=== PATIENT | male | born 1975 | race African-American/Black ===

== ENCOUNTER 2022-06-29 17:04 | Emergency (ER) | payer SELFPAY ==
[2022-06-29 17:23] VITALS: BP 116/87; PULSE 78; RESP 18; TEMP 36.4; O2SAT 99
--- NOTE | 2022-06-29 17:40 | ED.GENADULT ---
HPI - General Adult General Chief complaint: Skin/Abscess/Foreign Body Stated complaint: rash History of Present Illness HPI narrative: Patient is a 46-year-old -[place] male who presents to the [facility] via POV for evaluation of a generalized rash that has been present for 2 weeks He reports the rash to be erythematous, and pruritic. Denies taking OTC meds for symptoms. Scratching alleviates itch. Nothing worsens symptoms. Related Data Allergies Allergy/AdvReac Type Severity Reaction Status Date / Time No Known Allergies Allergy Verified 06/29/22 17:27 Review of Systems Review of Systems: denies recent/new changes in soaps, perfumes, lotions, detergents, and shampoos. Denies working with chemicals. Denies new or changes in medications/foods. Pertinent negatives fever, chills, sweats, change in appetite, malaise, poor p.o. intake, recent weight loss, change in appetite, myalgias, lymphadenopathy, LOC, dizziness, burning sensation, petechiae, blistering, swelling, streaking, warmth, lesions, easy bruising, lip/tongue/throat swelling, facial swelling, abdominal pain, nausea, vomiting, numbness, tingling, loss of sensation, cough, wheezing, chest pain, and heart palpitations/murmurs. PMFSH Comments I have reviewed and agree with the patient's past medical, surgical, social, and family hx as documented by the RN. There is no relevant family history pertinent to the presenting complaint. Exam Narrative: GENERAL: Well-appearing, well-nourished, and in no acute distress. HEAD: Normocephalic, atraumatic. No facial swelling appreciated. EYES: PERRLA and EOMI. No evidence of erythema, swelling, or drainage. ENT: Nares clear, no rhinorrhea or epistaxis.Mucous membranes moist and pink. Uvula is midline without erythema and swelling. No evidence of obstruction, petechial rash, cobblestoning, lesions, ulcers, erythema, swelling, exudates, peritonsillar abscess, tenting, or drooling. Breath odor and voice normal. NECK: Supple. No Lymphadenopathy or nuchal rigidity appreciated. CHEST: Bilateral lung weeks are clear to auscultation. No respiratory distress. No evidence of cough or pleuritic cp upon examination. HEART: Regular rate and rhythm. No murmur, gallop, or rub heard. EXTREMITIES: Normal range of motion. No edema. SKIN: Warm, dry. Mild generalized rash that is raised and erythematous consistent with contact dermatitis. Rash is sparsely dispersed. No facial involvement. No evidence of cellulitis, abscess, streaking, induration, abrasions/lacerations, petechiae, hematoma, contusion, drainage, or bleeding. NEURO: No focal deficits. Alert and oriented x3. SPECIAL OBSERVATIONS: Smiling. Laughing. Course Course Level of Care: Express Care Visit Vital Signs Vital signs: Vital Signs Temperature 97.6 F 06/29/22 17:23 Pulse Rate 78 06/29/22 17:23 Respiratory Rate 18 06/29/22 17:23 Blood Pressure 116/87 06/29/22 17:23 Pulse Oximetry 99 06/29/22 17:23 Oxygen Delivery Room Air 06/29/22 17:23 Temperature 97.6 F 06/29/22 17:23 Pulse Rate 78 06/29/22 17:23 Respiratory Rate 18 06/29/22 17:23 Blood Pressure 116/87 06/29/22 17:23 Pulse Oximetry 99 06/29/22 17:23 Oxygen Delivery Room Air 06/29/22 17:23 Medical Decision Making Differential Diagnosis Differential Diagnosis: Contact/allergic dermatitis, atopic dermatitis, psoriasis, cellulitis, tinea infection, parasite infection, shingles Vital Signs Vital Signs: Vital Signs Temperature 97.6 F 06/29/22 17:23 Pulse Rate 78 06/29/22 17:23 Respiratory Rate 18 06/29/22 17:23 Blood Pressure 116/87 06/29/22 17:23 Pulse Oximetry 99 06/29/22 17:23 Oxygen Delivery Room Air 06/29/22 17:23 Temperature 97.6 F 06/29/22 17:23 Pulse Rate 78 06/29/22 17:23 Respiratory Rate 18 06/29/22 17:23 Blood Pressure 116/87 06/29/22 17:23 Pulse Oximetry 99 06/29/22 17:23 Oxygen Delivery Room Air 06/29/22 17:23
== END 2022-06-29 17:40 | disposition home or self-care (01) ==
PROVIDERS: Emergency Provider Nurse Practitioner Family
DX: L25.9 Unspecified contact dermatitis, unspecified cause (principal)
CPT/HCPCS: 99203; G0463

== ENCOUNTER 2022-07-20 18:17 | Emergency (ER) | payer OTHER, SELFPAY ==
--- NOTE | ~2022-07-20 | XR_ITS ---
[id number] DATE: 07/20/2022 18:36 INDICATION: Left lower anterior rib pain after injury leaning over mental TECHNIQUE: PA chest. 3 views of the left ribs. COMPARISON: None FINDINGS: No left rib fracture is detected. Normal heart size. No hilar or mediastinal enlargement. No pulmonary infiltrate or consolidation, ple ural effusion or pulmonary vascular congestion or pneumothorax. IMPRESSION: No left rib fracture is noted No active cardiopulmonary disease Reviewed, dictated and finalized at [facility]. Reviewed, dictated and finalized at [facility].
--- NOTE | 2022-07-20 18:19 | ED.ABDPAIN ---
HPI - Abdominal Pain General Chief Complaint: Extremity Problem,Nontraumatic Stated Complaint: Lt Side Pain Time Seen by Provider: 07/20/22 18:19 Related Data Home Medications Medication Instructions Recorded Confirmed No Home Medications 07/20/22 07/20/22 Allergies Allergy/AdvReac Type Severity Reaction Status Date / Time No Known Allergies Allergy Verified 07/20/22 18:18 Discharge Plan Discharge Prescriptions: No Action No Home Medications Follow-up/Referrals: UNKNOWN,DOCTOR [Non-Staff] -
[2022-07-20 18:23] VITALS: BP 125/74; PULSE 81; RESP 16; TEMP 36.7; O2SAT 99
--- NOTE | 2022-07-20 18:27 | ED.CHESTPAIN ---
HPI - Chest Pain General Chief Complaint: Extremity Problem,Nontraumatic Stated Complaint: Lt Side Pain Time Seen by Provider: 07/20/22 18:19 Source: patient Mode of arrival: ambulatory Limitations: no limitations History of Present Illness HPI narrative: Mr. De La Fuente is a 46-year-old male patient presenting to the clinic today with complaints of left-sided anterior rib pain. He reports that he was leaning over [place] to picker/puller a branch approximately 2 weeks ago and felt a pop and a snap in his left ribs. He is complaining of pain to the left ribs still. States that it hurts to cough, sneeze, or laugh. He is concerned about a rib fracture Related Data Allergies Allergy/AdvReac Type Severity Reaction Status Date / Time No Known Allergies Allergy Verified 07/20/22 18:18 Review of Systems Review of Systems: Pertinent positives per HPI. Patient denies any fever, chills, rash, headache, visual changes, dizziness, cough, runny nose, sore throat, shortness of breath, chest pain, palpitations, nausea, vomiting, diarrhea, constipation, abdominal pain, or any urinary issues. PMFSH Comments At the time of my signature, I reviewed and agree with the nursing past medical, surgical, social, and family history. There is no relevant family history pertinent to the patient complaint. Exam Narrative: General: Well-developed, well nourished, in no apparent distress Head: Normocephalic, atraumatic. Chest: Even rise and fall with respirations, no bruising or swelling visualized, tender to palpation over the left anterior lower left ribs Cardio: Regular rate and rhythm, s1 and s2 normal, no murmur appreciated. Resp: Clear to auscultation bilaterally, no rhonchi, rales, wheezing or rubs. Extremities: No deformity, no edema, no cyanosis, capillary refill less than 2 seconds, peripheral pulses palpable and strong. Integumentary: Ackerman, warm, and dry, intact without lesion, no rashes. Course Course Emergency Course: Portions of this record may have been created with voice recognition software. Level of Care: Express Care Visit Vital Signs Vital signs: Vital signs reviewed MDM - Chest Pain MDM Narrative Medical decision making narrative: At the time of visit patient is resting comfortably on the exam table. X-ray was performed of the left ribs/chest. X-rays negative for any fracture or any cardiopulmonary disease I suspect the patient has a muscle strain to the left chest wall. Supportive measures were discussed with the patient he voiced understanding of discharge instructions and agrees to treatment plan. Differential Diagnosis Differential diagnosis: Likely fracture of rib and other (Muscle strain, rib contusion) Imaging Data Radiologist's impression: [address] [address] XRay Report Signed Patient: Félix De La Fuente : 1975 MR#: [id number] Age/Sex: 46 / M Acct:[id number] Loc: [facility]? ? ADM Date: 07/20/22Attending Dr: Ordering Physician: Baljit Nickerson APRN Date of Service: 07/20/22 Procedure(s): XR ribs LT w PA CXR Accession Number(s): [id number] cc: Baljit Nickerson APRN; BREWING TECHNICIAN PHYSICIAN~ [id number] DATE: 07/20/2022 18:36 INDICATION: Left lower anterior rib pain after injury leaning over mental? TECHNIQUE: PA chest. 3 views of the left ribs.? COMPARISON: None? FINDINGS: No left rib fracture is detected. Normal heart size. No hilar or mediastinal enlargement. No pulmonary infiltrate or consolidation, pleural effusion or pulmonary vascular congestion or pneumothorax.? IMPRESSION: No left rib fracture is noted No active cardiopulmonary disease? Reviewed, dictated and finalized at [facility]. Reviewed, dictated and finalized at [facility]. Dictated By:? Juanjose Feldman MD?
== END 2022-07-20 18:56 | disposition home or self-care (01) ==
PROVIDERS: Emergency Provider Nurse Practitioner Family
DX: S29.011A Strain of muscle and tendon of front wall of thorax, initial encounter (principal); X50.9XXA Other and unspecified overexertion or strenuous movements or postures, initial encounter
CPT/HCPCS: 71101; 99213; G0463

== ENCOUNTER 2024-05-10 08:05 | Emergency (ER) | payer BC, SELFPAY ==
--- NOTE | ~2024-05-10 | XR_ITS ---
XR hip LT 2V w AP pelvis Ordering provider: Salvador Fajardo MD History: . pain, Pt states he dislocated Lt hip x yrs ago. . Comparison: None. FINDINGS: BONES: No definite acute fracture or dislocation. HIP JOINT SPACES: Severe left hip osteoarthritis. SACROILIAC JOINT SPACES/LUMBAR SPINE: The sacroiliac joint spaces are normal. Mild degenerative higgins es of the visualized lower lumbar spine. PUBIC SYMPHYSIS: Normal. SOFT TISSUES: Normal. IMPRESSION: No definite acute osseous abnormality pelvis and left hip. Severe left hip osteoarthritic changes. Reviewed, dictated and finalized at location [facility].
[2024-05-10 08:06] VITALS: BP 145/84; PULSE 98; RESP 17; TEMP 36.6; O2SAT 100
[2024-05-10] MEDS: HYDROcodone/acetaminophen (*CRX) 5-325 MG TABLET 1 TAB PO (08:39)
--- NOTE | 2024-05-10 09:30 | ED.LOWEXIN ---
HPI - Extremity Injury (Lower) General Chief Complaint: Extremity Injury, Lower Stated Complaint: HIP Time Seen by Provider: 05/10/24 08:13 History of Present Illness HPI Narrative: patient is a 48-year-old male who presents ER with left hip pain. Reports he dislocated his hip in 80s and was told he would likely develop arthritis at some point. He has been having increased pain over last couple of years. He reports with certain positions he feels his leg/ hip popping like it is moving in the joint. He has trouble walking. Has not been seen by Orthopedic surgery. Related Data Allergies Allergy/AdvReac Type Severity Reaction Status Date / Time No Known Allergies Allergy Verified 05/10/24 08:09 Review of Systems Constitutional: Constitutional: Reports no additional constitutional complaints Musculoskeletal: Musculoskeletal: Reports back pain ( Chronic), Denies myalgias, Reports arthralgias and Denies joint swelling Integumentary/Breasts: Skin/Breast: Reports system reviewed and no additional complaints, except as docu PMFSH Past Medical History Medical History (Updated 05/10/24 @ 09:41 by Salvador Fajardo MD) Healthy adult male Surgical History Surgical History (Updated 05/10/24 @ 09:41 by Salvador Fajardo MD) No pertinent past surgical history Exam Narrative: GENERAL: Well-appearing, well-nourished, and in no acute distress. HEAD: Normocephalic, atraumatic. ENT: Mucous membranes moist. EXTREMITIES: Increased discomfort with range of motion at left hip social of external rotation. Patient walks with a limp. SKIN: Warm, dry, no rash. NEURO: Alert and oriented x3. PSYCH: Normal mood and affect. Course Course Emergency Course: Patient with severe osteoarthritis. Will discharge with anti-inflammatories and some narcotics for breakthrough pain. Needs to establish care with orthopedic surgery and likely get a total hip replacement. Vital Signs Vital signs: Vital Signs Temperature 97.8 F 05/10/24 08:06 Pulse Rate 98 05/10/24 08:06 Respiratory Rate 17 05/10/24 08:06 Blood Pressure 145/84 H 05/10/24 08:06 Pulse Oximetry 100 05/10/24 08:06 Oxygen Delivery Room Air 05/10/24 08:06 Temperature 97.8 F 05/10/24 08:06 Pulse Rate 98 05/10/24 08:06 Respiratory Rate 17 05/10/24 08:06 Blood Pressure 145/84 H 05/10/24 08:06 Pulse Oximetry 100 05/10/24 08:06 Oxygen Delivery Room Air 05/10/24 08:06 MDM - Extremity Injury (Lower) Imaging Data Radiologist's impression: ITS Impressions Hip/Pelvis X-Ray 05/10/24 08:54 IMPRESSION: No definite acute osseous abnormality pelvis and left hip. Severe left hip osteoarthritic changes. Discharge Plan Discharge Clinical Impression: Hip osteoarthritis Patient Disposition: Home, Self-Care Condition: Stable Instructions: Arthritis (ED) Additional Instructions: Return to the ER if you have fever over 101F, you suffer new injury, you cannot keep down food/water, or you have other concerns. Prescriptions: New naproxen 375 mg tablet 375 mg PO BID Qty: 14 0RF hydrocodone-acetaminophen 5-325 mg tablet 1 tablet PO Q6H PRN (Reason: pain) Qty: 20 0RF No Action cyclobenzaprine 10 mg tablet 10 mg PO Q8H PRN (Reason: muscle spasm) 7 Days Qty: 21 0RF naproxen 500 mg tablet 500 mg PO BID PRN (Reason: pain) 7 Days Qty: 14 0RF Follow-up/Referrals: Darrel Arias MD [Physician] - 1 Week UNKNOWN,DOCTOR [Primary Care Provider] - Stand Alone Forms: Work/School Release IP
== END 2024-05-10 09:48 | disposition home or self-care (01) ==
PROVIDERS: Emergency Provider Emergency Medicine
DX: M16.12 Unilateral primary osteoarthritis, left hip (principal)
CPT/HCPCS: 73502; 99283; A9270

== ENCOUNTER 2024-06-01 10:52 | Outpatient (CLI) | payer BC, SELFPAY ==
--- NOTE | ~2024-06-01 | CT_ITS ---
EXAMINATION: CT hip LT wo con DATE: 06/01/2024 11:30 INDICATION: Left hip pain. TECHNIQUE: Computed tomography (CT) of the left hip was performed without intravenous contrast. Autom ated exposure control and iterative reconstruction technique were employed. The dose-length product w as 532.13 mGy-cm. COMPARISON: Left hip radiographs 05/10/2024 FINDINGS: Bone alignment is normal. No fracture. There is severe left hip osteoarthritis. There is a 7 mm loose body in the left hip joint. IMPRESSION: 1. Severe left hip osteoarthritis. 2. Left hip joint loose body. Reviewed, dictated and finalized at location [facility].
--- NOTE | ~2024-06-01 | MR_ITS ---
EXAMINATION: MR lumbar spine wo con DATE: 06/01/2024 11:20 INDICATION: Lumbar radiculopathy. Low back pain. TECHNIQUE: Magnetic resonance imaging (MRI) of the lumbar spine was performed without intravenous con trast. Sequences included sagittal T2-weighted FSE, sagittal T2-weighted FS FSE, sagittal T1-weighted FSE, and axial T2-weighted FSE. COMPARISON: None FINDINGS: Bone alignment is normal. S1 is a transitional segment. There is mild chronic anterior wedg ing of T12 and L1 vertebral bodies. There is mildly decreased disc height at L4-L5 and moderately dec reased disc height at L5-S1. The distal spinal cord signal intensity is normal. The conus medullaris is at T12-L1. The following disc levels are specifically discussed: L1-L2: The disc does not extend beyond the endplate margin. There is mild bilateral facet joint osteo arthritis. There is no neural foraminal stenosis. There is no central canal stenosis. L2-L3: The disc does not extend beyond the endplate margin. There is mild bilateral facet joint osteo arthritis. There is no neural foraminal stenosis. There is no central canal stenosis. L3-L4: The disc does not extend beyond the endplate margin. There is moderate bilateral facet joint o steoarthritis. There is no neural foraminal stenosis. There is no central canal stenosis. L4-L5: The disc is bulging. There is mild right and moderate left facet joint osteoarthritis. There i s mild bilateral neural foraminal stenosis. There is mild central canal stenosis. L5-S1: The disc is bulging and has an annular fissure. There is severe bilateral facet joint osteoart hritis. There is moderate bilateral neural foraminal stenosis. There is mild central canal stenosis. IMPRESSION: 1. Moderate lower lumbar spondylosis. Reviewed, dictated and finalized at location A.
== END 2024-06-01 10:53 ==
LOC: MICIMG 10:53
PROVIDERS: PCP Orthopaedic Surgery; Visit Provider Orthopaedic Surgery
DX: M16.12 Unilateral primary osteoarthritis, left hip (principal); M24.052 Loose body in left hip; M43.06 Spondylolysis, lumbar region
CPT/HCPCS: 72148; 73700

== ENCOUNTER 2024-06-14 09:54 | Outpatient (CLI) | payer BC, SELFPAY ==
[2024-06-14 14:35] LABS: Basophils Absolute Auto 0.1 K/mm3 (0.0-0.1); Basophils Percent Auto 1.1 % (0.2-1.2); Eosinophils Absolute Auto 0.3 K/mm3 (0-0.3); Eosinophils Percent Auto 4.4 % (0-4.4); Hematocrit 47.7 % (42.0-52.0); Hemoglobin 15.1 g/dL (14.0-18.0); Immature Granulocyte Absolute 0.02 K/mm3 (0.00-0.031); Immature Granulocyte Percent A 0.3 % (0-0.5); Lymphocytes Absolute Auto 2.31 K/mm3 (0.9-3.2); Lymphocytes Percent Auto 37.4 % (18.3-44.2); Mean Corpuscular HGB Conc 31.7 g/dl (32-36); Mean Corpuscular Hemoglobin 27.8 pg (26-34); Mean Corpuscular Volume 87.7 fl (80-100); Mean Platelet Volume 9.7 fl (7.4-10.4); Monocytes Absolute Auto 0.5 K/mm3 (0.1-0.6); Monocytes Percent Auto 7.9 % (2.6-8.5); Neutrophils Percent Auto 48.9 % (45.5-73.1); Platelet Count Result 395 k/mm3 (150-375); Red Blood Count 5.44 M/mm3 (4.6-6.20); Red Cell Distribution Width 13.4 % (11.5-14.5); White Blood Count 6.2 K/mm3 (4.5-10.0)
[2024-06-14 15:04] LABS: Alanine Aminotransferase 43 U/L (6-50); Albumin Level 4.3 g/dL (3.5-5.1); Alkaline Phosphatase 61 U/L (38-126); Anion Gap 9 mmol/L (4-12); Aspartate Amino Transferase 65 U/L (17-59); Bilirubin,Total 0.5 mg/dL (0.2-1.3); Blood Urea Nitrogen 12 mg/dL (9-20); Calcium 9.1 mg/dL (8.4-10.2); Carbon Dioxide 24 mmol/L (22-30); Chloride 106 mmol/L (98-107); Cholesterol 229 mg/dL (0-200); Estimated Glomerular Filt Rate > 60; Glucose 99 mg/dL (65-110); HDL Direct 30 mg/dL; Potassium 4.3 mmol/L (3.4-5.0); Sodium 139 mmol/L (137-145); Triglycerides 234 mg/dL (<150)
[2024-06-14 15:17] LABS: LDL Cholesterol Direct 126 mg/dL
== END 2024-06-14 09:55 | disposition home or self-care (01) ==
LOC: ANHGOSHLAB 09:56
PROVIDERS: PCP Family Medicine; Visit Provider Family Medicine
DX: M16.12 Unilateral primary osteoarthritis, left hip (principal)
CPT/HCPCS: 36415; 80053; 80061; 85025

== ENCOUNTER 2024-06-15 11:45 | Outpatient (CLI) | payer BC, SELFPAY ==
[2024-06-15 13:37] LABS: Urine Cotinine NEGATIVE
[2024-06-15 13:44] LABS: Hemoglobin A1C 5.9 % (<5.7)
== END 2024-06-15 11:46 | disposition home or self-care (01) ==
PROVIDERS: PCP Family Medicine; Visit Provider Orthopaedic Surgery
DX: M16.12 Unilateral primary osteoarthritis, left hip (principal); Z01.818 Encounter for other preprocedural examination
CPT/HCPCS: 80307; 83036; 86850; 86900; 86901; 87081